=== PATIENT | female | born 1975 | race Two or more races ===

== ENCOUNTER 2019-03-10 17:42 | Emergency (ER) | payer BC, OTHER ==
[~2019-03-10] VITALS: Ht 160 cm; Wt 73.9 kg
[2019-03-10 17:45] VITALS: BP 141/98
[2019-03-10] MEDS ORDERED: CEPHALEXIN MONOHYDRATE 500 MG CAPSULE PO ONE ×2 (18:00)
[2019-03-10 18:04] LABS: APPEARANCE,URINE Clear (CLEAR); BILIRUBIN,URINE Negative (NEGATIVE); BLOOD, URINE Large Ery/uL (NEGATIVE); KETONES,URINE Negative (NEGATIVE); LEUKOCYTE ESTERASE ,URINE Moderate (NEGATIVE); NITRITE, URINE Negative (NEGATIVE); PROTEIN,URINE 30 mg/dl (NEGATIVE); UGLUCOSE Negative (NEGATIVE); UROBILINOGEN,URINE 0.2 EU/dL (0.2)
[2019-03-10 18:05] LABS: COLOR,URINE STRAW (YELLOW)
[2019-03-10] MEDS ORDERED: PHENAZOPYRIDINE HCL 200 MG TABLET ONE (18:21)
--- NOTE | 2019-03-10 18:23 | NUR ---
For discharge- Aftercare Instructions given-verbalized understanding. Home ambulatory Stable
[2019-03-10 18:24] LABS: WBC,URINE 15-25 /HPF (0-3)
[2019-03-10 18:25] LABS: BACTERIA,URINE Few /HPF (None Seen)
[2019-03-10 18:26] LABS: SQUAMOUS EPITHELIAL CELL,UR Few /HPF (None Seen)
[2019-03-10] MEDS ORDERED: PHENAZOPYRIDINE HCL 200 MG TABLET PO ONE (18:30)
== END 2019-03-10 18:25 | disposition home or self-care (01) ==
LOC: ER 17:47
DX: N30.90 Cystitis, unspecified without hematuria (principal)
CPT/HCPCS: 81000-TC; 84703-TC; 87086-TC

== ENCOUNTER 2022-12-23 16:36 | Emergency (ER) | payer OTHER ==
[~2022-12-23] VITALS: Ht 160 cm; Wt 74.8 kg
--- NOTE | 2022-12-23 17:10 | NUR ---
URINE SAMPLE OBTAINED SENT TO LAB
[2022-12-23 18:26] LABS: BILIRUBIN,URINE NEGATIVE (NEGATIVE); COLOR,URINE YELLOW (YELLOW); LEUKOCYTE ESTERASE ,URINE 1+ (NEGATIVE); NITRITE, URINE NEGATIVE (NEGATIVE); PROTEIN,URINE NEGATIVE (NEGATIVE); UGLUCOSE NEGATIVE (NEGATIVE); UROBILINOGEN,URINE 0.2 EU/dL (0.2)
[2022-12-23 18:37] LABS: BACTERIA,URINE RARE /HPF (None Seen); RBC,URINE 51-80 /HPF (0-2)
[2022-12-23] MEDS ORDERED: IBUPROFEN 600 MG TABLET PO ONE (19:30)
[2022-12-23] MEDS ORDERED: CEPHALEXIN MONOHYDRATE 500 MG CAPSULE PO ONE (19:30)
[2022-12-23] MEDS ORDERED: CEPH500C2 PO (19:33)
[2022-12-23 20:01] VITALS: BP 159/89
== END 2022-12-23 19:50 | disposition home or self-care (01) ==
LOC: ER 16:47
DX: N39.0 Urinary tract infection, site not specified (principal); M54.50 Low back pain, unspecified; I10 Essential (primary) hypertension
CPT/HCPCS: 81001; 84703-TC; 87086-TC